=== PATIENT | female | born 1950 ===

== ENCOUNTER 2017-07-09 16:41 | Emergency (ER) | payer MEDICARE, OTHER ==
[2017-07-09 18:24] VITALS: TEMP 97.9
--- NOTE | 2017-07-09 18:33 | ED PDOC ---
Arrival/HPI - General Chief Complaint: Back Pain Time Seen by Provider: 07/09/17 18:18 Historian: Patient - History of Present Illness Narrative History of Present Illness (Text): 07/09/17 18:30 This 67 yo female with pmh renal agenesis unilateral, presents to this ED c/o right posterior shoulder pain x 1 day. Patient stated she had the Influenza last week, and she is currently taking Azithromycin x 2 days. Patient denies trauma, weakness, paresthesias, skin rash, heavy lifting, hemoptysis, sob, cp, leg swelling, calf pain, blood disorder, or abnormal gait. Time/Duration: Other (see hpi) Context: Home Past Medical History - Provider Review Nursing Documentation Reviewed: Yes - Cardiac Hx Cardiac Disorders: No - Pulmonary Hx Respiratory Disorders: No - Neurological Hx Neurological Disorder: No - HEENT Hx HEENT Disorder: No - Renal Hx Renal Disorder: Yes Hx Kidney Stones: Yes - Endocrine/Metabolic Hx Endocrine Disorders: No - Hematological/Oncological Hx Blood Disorders: No - Integumentary Hx Dermatological Disorder: No - Musculoskeletal/Rheumatological Hx Musculoskeletal Disorders: No - Gastrointestinal Hx Gastrointestinal Disorders: No - Genitourinary/Gynecological Hx Genitourinary Disorders: No - Psychiatric Hx Psychophysiologic Disorder: No Hx Substance Use: No - Surgical History Other/Comment: right Kidney removed Family/Social History - Physician Review Nursing Documentation Reviewed: Yes Family/Social History: Other (noncontributory) Smoking Status: Never Smoked Hx Alcohol Use: No Hx Substance Use: No Allergies/Home Meds Allergies/Adverse Reactions: Allergies No Known Allergies Allergy (Verified 07/09/17 18:24) Home Medications: Home Meds Medication Instructions Recorded Confirmed Azithromycin [Zithromax] 250 mg PO DAILY 07/09/17 07/09/17 Ramipril [Altace] 2.5 mg PO DAILY 07/09/17 07/09/17 Review of Systems - Review of Systems Constitutional: Normal. absent: Fatigue, Weight Change, Fevers Eyes: Normal ENT: Normal Respiratory: Cough. absent: SOB, Sputum, Wheezing Cardiovascular: Normal. absent: Chest Pain, Palpitations Gastrointestinal: Normal. absent: Abdominal Pain, Nausea, Vomiting Genitourinary Female: Normal. absent: Dysuria, Frequency, Hematuria Musculoskeletal: Other (see hpi) Skin: Normal. absent: Rash Neurological: Normal. absent: Headache, Dizziness, Focal Weakness, Gait Changes , Speech Changes, Facial Droop, Disequilibrium, Seizure Endocrine: Normal Hemo/Lymphatic: Normal Psychiatric: Normal Physical Exam Vital Signs Temp Pulse Resp BP Pulse Ox 07/09/17 18:20 97.9 F 68 17 154/96 H 99 Temperature: Afebrile Blood Pressure: Normal Pulse: Regular Respiratory Rate: Normal Appearance: Positive for: Well-Appearing, Non-Toxic, Comfortable Pain Distress: None Mental Status: Positive for: Alert and Oriented X 3 - Systems Exam Head: Present: Atraumatic, Normocephalic Pupils: Present: PERRL Extroacular Muscles: Present: EOMI Conjunctiva: Present: Normal Mouth: Present: Moist Mucous Membranes Neck: Present: Normal Range of Motion Respiratory/Chest: Present: Clear to Auscultation, Good Air Exchange. No: Respiratory Distress, Accessory Muscle Use, Wheezes, Retracting, Tender to Palpation Cardiovascular: Present: Regular Rate and Rhythm, Normal S1, S2. No: Murmurs Abdomen: Present: Normal Bowel Sounds. No: Tenderness, Distention, Peritoneal Signs Back: Present: Normal Inspection Upper Extremity: Present: Normal Inspection, NORMAL PULSES, Tenderness (mild tenderness over right scapulae area. No rash, erythema, ecchymosis or swelling. ROM on right shoulder reduced due to pain), Neurovascularly Intact, Capillary Refill < 2s. No: Cyanosis, Edema Lower Extremity: Present: Normal Inspection. No: Edema Neurological: Present: GCS=15, CN II-XII Intact, Speech Normal, Motor Func Grossly Intact, Normal Sensory Function, Normal Cerebellar Funct, Gait Normal, Memory Normal Skin: Present: Warm, Dry, Normal Color. No: Rashes Psychiatric: Present: Alert, Oriented x 3, Normal Insight, Normal Concentration Medical Decision Making ED Course and Treatment: 07/09/17 20:15 Re-evaluation. Patient feels better. Discussed results and plan with patient who expresses understanding. All questions answered and there is agreement with the plan to discharge home with instructions. Patient stable for discharge. Return if symptoms persist or worsen. 07/09/17 20:28 Patient stated she developed a cough after a week taking Ramipril 2.5 mg tab. I recommended patient to call her renal doctor who prescribed this medication to her , and to let doctor know about this persisting cough. I told patient this type of medication can cause a dry cough. She understood plan. Re-evaluation Time: 20:15 Reassessment Condition: Re-examined, Improved - RAD Interpretation Narrative RAD Interpretations (Text): 07/09/17 20:16 Chest x-rays: NAD Shoulder x-rays: no fx Radiology Orders: 07/09/17 18:29 CHEST TWO VIEWS (PA/LAT) [RAD] Stat SHOULDER RIGHT [RAD] Stat Disposition/Present on Arrival - Present on Arrival Any Indicators Present on Arrival: No History of DVT/PE: No History of Uncontrolled Diabetes: No Urinary Catheter: No History of Decub. Ulcer: No History Surgical Site Infection Following: None - Disposition Have Diagnosis and Disposition been Completed?: Yes Diagnosis: Upper respiratory infection, Cough due to DONELL inhibitor Disposition: HOME/ ROUTINE Disposition Time: 20:16 Patient Plan: Discharge Patient Problems: Current Active Problems Problem Status Onset Cough Acute Upper respiratory infection Acute Condition: GOOD Discharge Instructions (ExitCare): Acute Cough (ED) Additional Instructions: Call private doctor and kidney doctor to follow up and to review plan. take medication as instructed. Do not drive or operate machinery for at least 6 hours if you take Phenergan with codeine. Return to emergency if symptoms worsen. Remember that Ramipril could cause a dry cough, so let your doctor know about it. Return to emergency if symptoms worsen. Prescriptions: Promethazine/Codeine [Codeine/Promethazine 10 MG/5 Ml-6.25 MG/5 Ml] 10 ml PO Q4 PRN #180 ml PRN Reason: Cough Referrals: Trinity Billings MD [Primary Care Provider] - Follow up with primary Forms: [email or web address] (K[place]z)
[2017-07-09 21:20] VITALS: BP 145/82; PULSE 72; RESP 18; O2SAT 100
--- NOTE | 2017-07-10 08:05 | RAD ---
PROCEDURE: Radiographs of the Right Shoulder HISTORY: posterior shoulder pain COMPARISON: No prior. FINDINGS: BONES: Normal. No fracture. JOINTS: Normal. Glenohumeral and acromioclavicular joints preserved. No osteoarthritis. SOFT TISSUES: Normal. OTHER FINDINGS: None. IMPRESSION: Normal radiographs of the right shoulder.
--- NOTE | 2017-07-10 08:06 | RAD ---
HISTORY: cough COMPARISON: No prior. TECHNIQUE: Chest PA and lateral FINDINGS: LUNGS: No active pulmonary disease. PLEURA: No significant pleural effusion identified. No pneumothorax apparent. CARDIOVASCULAR: Normal. OSSEOUS STRUCTURES: No significant abnormalities. VISUALIZED UPPER ABDOMEN: Normal. OTHER FINDINGS: None. IMPRESSION: No active disease.
== END 2017-07-09 21:07 | disposition home or self-care (01) ==
LOC: MERGE 16:41 → ED 16:41
DX: R05 Cough (principal); T46.4X5A Adverse effect of angiotensin-converting-enzyme inhibitors, initial encounter; J06.9 Acute upper respiratory infection, unspecified